=== PATIENT | female | born 2000 | race Caucasian/White ===

== ENCOUNTER 2025-03-07 14:22 | Outpatient (REF) | payer MEDICAID, SELFPAY ==
--- OUTSIDE RECORDS SUMMARY | 2025-03-07 17:19 | XMS_ITS | Encounter Summary ---
Author Organization [facility] Address [address] [place] [address] [address] [address] Care Team Providers Care Drapery Head Former Name Role Phone Jorge Marin MD Primary Care Prov ider Encounter Details Date Type Department Care Team (Late st Contact Info) Description 01/21/2025 Orders Only [facility] Information Management [address] [place], [place] [phone] Provider, Santa, Social History Tobacco Use Types Packs/Day Years Used Date Smoking Tobacco: Never Assessed Depression Answer Date Recorded Patient Health Questionnaire-9 Score 12 04/19/2024 Patient Health Questionnaire-9 Score 12 04/19/2024 Last PHQ-9: Questionnaire Data Not on file 0 04/19/2024 Depression Answer Date Recorded Patient Health Questionnaire-2 Score 4 04/19/2024 Comments Unknown Sex and Gender Information Value Date Recorded Sex Assigned at Female 09/09/2022 10:15 AM EDT Legal Sex Female 10:15 AM EDT Gender Identity Female 09/09/2022 10:15 AM EDT Sexual Orientation Don't know 09/09/2022 10 :15 AM EDT documented as of this encounter Plan of Treatment Not on file documented as of this encounter Procedures Procedure Name Priority Date/Time Associated Diagnosis Comments US PELVIS TRANSVAGINAL Routine 01/20/2025 1:42 PM EDT documented in this encounter Results * US Pelvis Transvaginal (01/20/2025 1:42 PM EDT) Anatomical Region Laterality Modality Pelvis Ultrasound us Historical Provider MD AZUL US PROCEDURES Final R esult documented in this encounter Visit Diagnoses Not on filedocumented in this encounter Additional Health Concerns Assessment Noted Time PHQ-9 Depression Total Score: 12 024 2:53 PM EDT documented as of this encounter Care Teams Drapery Head Former Relationship Specialty Start Date End Date Jorge Marin MD [address] [place] [id number] PCP - General Internal Medicine 04/09/20 documented as of this encounter
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
--- OUTSIDE RECORDS SUMMARY | 2025-03-07 17:19 | XMS_ITS ---
Author Organization [facility] Address [address] [place] [address] [address] [place] [place] [address] Care Team Providers Care Purchasing Officer Name Role Phone Jorge Marin MD Primary Care Prov ider [facility] Complex Status:Outreach In Progress (Enrolling) Start date:02/18/2025 Enrollment reason:Referred by provider Overview SDOh- Patient looking for assistance with Utilities. Referral will be placed. Case Team Name Relationship Phone Marquita Chao (Responsible Staff) Continued Care and Services Coordination
--- OUTSIDE RECORDS SUMMARY | 2025-03-07 17:19 | XMS_ITS | Clinical Summary ---
Author Organization [address] [facility] Address [address] [place] [address] Phone Care Team Providers Care Chicken Handler Name Role Phone Velma Purcell MD Primary Care Provider [phone] Allergies No known active allergies Medications clotrimazole-be tamethasone (LOTRISONE) 1-0.05 % cream Apply topically to affected area twice daily for no more than 10 days 3 Active copper (PARAGARD) 380 square mm IUD by Intrauterine route continuous. 2 Active MULTIVITAMIN ORAL Take by mouth. Activ e hydrOXYzine HCL (ATARAX) 25 mg tablet Take 1 tablet (25 mg total) by mouth 1 (one) time each day. 4 Active ibuprofen (ADVIL,MOTRIN) 800 mg tablet 4 Active ergocalciferol (VITAMIN D-2) 1,250 mcg (50,000 unit) capsuleIndicati ons:Vitamin D deficiency Take 1 capsule (50,000 Units total) by mouth 1 (one) time per week for 8 doses. 8 each 5 03/20/20 25 Active Active Problems Problem Noted Date Diagnosed Date Family history of ovarian cancer 01/05/2025 Overview (01/05/2025): 10/2023 Kimberly EMPOWER hereditary breast/ovarian cancer screen NEGATIVE. Class 3 severe obesity with body mass index (BMI) of 45.0 to 49.9 in adult 08/31/2024 ELIO (generalized anxiety disorder) 04/19/2024 Moderate depressive disorder 04/19/2024 Encounters Date Type Department Care Team Description 02/23/2025 2:30 PM EDT Telemedicine Bariatric Surgery [address] [phone] Class 3 severe obesity with body mass index (BMI) of 45.0 to 49.9 in adult, unspecified obesity type, unspecified whether serious comorbidity present (Primary Dx) 01/27/2025 11:30 AM EDT Office Visit Obstetrics & Gynecology [address] [phone] Michell Arredondo CNM Exposure to sexually transmitted disease (STD) (Primary Dx); Screen for STD (sexually transmitted disease) 01/20/2025 2:00 PM EDT - 01/20/2025 11:59 PM EDT Hospital Encounter [facility]ound [facility] [address] [place] [phone] Encounter for well woman exam with routine gynecological exam; IUD (intrauterine device) in place Discharge Disposition: Home or Self Care 01/19/2025 2:30 PM EDT Telemedicine Bariatric Surgery [address] [phone] Class 3 severe obesity with body mass index (BMI) of 45.0 to 49.9 in adult, unspecified obesity type, unspecified whether serious comorbidity present (CMS/HCC V24, CMS/HCC V28) (Primary Dx) 01/05/2025 2:30 PM EST Office Visit Obstetrics & Gynecology [address] [phone] Michell Arredondo CNM Encounter for well woman exam with routine gynecological exam (Primary Dx); Screening breast examination; IUD (intrauterine device) in place; Family history of ovarian cancer 12/20/2024 [place] [facility] [address] [phone] Alma Delia Munoz MD prior auth 12/14/2024 8:00 AM EST Office Visit Bariatric Surgery - [address] [place] [phone] Alma Delia Munoz MD Class 3 severe obesity due to excess calories with body mass index (BMI) of 45.0 to 49.9 in adult, unspecified whether serious comorbidity present (CMS/HCC V24, CMS/HCC V28) (Primary Dx) from Last 3 Months Immunizations Name Administration Dates Next Due DTaP (Infanrix) 6wks to less than 7yo ,08/07/1999,1998,09/05,1998 HPV, Quadrivalent 09/10/2012,09/10/2011,05/25/20 10 Hepatitis A Pediatric (Havri x; Vaqta) 12mo to less than 19yo 09/28/2013,05/25/2010 Hepatitis B Pediatric (Enger ix B; Recombivax HB) to less than 20 yo 1998,1998,1998 Hib (HbOC) 08/07/1999, 8,1998,07/04 IPV Inactivated polio (Ipol) 6wks and older 07/07/2002,1998,1998 Influenza Quadravalent, MDCK , 0.5ml, preservative free (Flucelvax) 6mo and older 08/15/2021 Influenza Quadrivalent, 0.5m l, preservative free (Fluarix; FluLaval; Fluzone) ages 6mo and older (Afluria) 3yo and older 09/06/2015 Influenza Quadrivalent, with preservative (Fluzone; Afluria) 6mo and older 08/15/2021,09/22/2019,07/29/2017 Influenza, live, intranasal, quadrivalent (FluMist) 2yo to less than 50yo 10/19/2014 Influenza, live, intranasal, trivalent (FluMist) 2yo to less than 50yo 09/28/2013 MMR, measles mumps and rubel la Live (Priorix; M-M-R II) 12mo and older 07/07/2002,05/08/1999 Meningococcal MCV4P 09/22/2019,10/14/2013 OPV 1998 Tdap Tetanus diptheria acell ular pertussis (Boostrix; Adacel) 7yo and older 08/15/2021,09/10/2011 Varicella live (Varivax) 12m o and older 06/10/2008,05/08/1999 Surgical History Surgery Date Site/Laterality Comments OTHER SURGICAL HISTORY PROCEDURE: DENIES PREVIOUS SURGERY Medical History Medical History Date Comments Obesity DX:Obesity Anxiety disorder DX:Anxiety diso rder; COMMENT: panic attack hx Gestational diabetes mellitu s (GDM) during controlled on oral hypoglycemic therapy 09/04/2021 DX:Gestational diabetes arsalan itus (GDM) during controlled on oral hypoglycemic therapy; COMMENT: Diabetes education appt 09-11-21 at 0900 . Report received and sent to mami sánchez rn 09/05/2021 I have discussed with pt when to check pocs 10/08 - pt re-educated and started on Metformin 500mg QHS Weekly testing at 36 weeks Twice weekly NST at 32 weeks Q 4 week growth ultrasound Delive* Family History Medical History Relation Name Comments Ovarian cancer Aunt mom side No Known Problems Father Hypertension Maternal Grandmother Ovarian cancer Maternal Grandmother No Known Problems Mother Hypertension Sister 1 No Known Problems Sister 2 Breast cancer Neg Hx Colon cancer Neg Hx Relation Name Status Comments Aunt mom side Alive Father Alive Maternal Grandmother Alive Mother Alive Sister 1 Alive Sister 2 Alive Social History Tobacco Use Types Packs/Day Years Used Date Smoking Tobacco: Never Smokeless Tobacco: Never Alcohol Use Standard Drinks/Week Comments Yes 0 (1 standard drink = 0.6 oz pur e alcohol) Comments Unknown Sex and Gender Information Value Date Recorded Sex Assigned at Female 12/17/2024 5:55 AM EST Legal Sex Female 4:37 AM EST Gender Identity Female 12/17/2024 5:55 AM EST Sexual Orientation Straight 12/17/2024 5: 55 AM EST 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 Comments:Apg Last Filed Vital Signs Vital Sign Reading Time Taken Comments Blood Pressure 115/76 01/27/2025 11:34 AM EDT Pulse 77 01/27/2025 11:34 AM EDT Temperature 36.6 ??C (97.8 ??F) 12/14/2024 8:41 AM ES T Respiratory Rate - - Oxygen Saturation - - Inhaled Oxygen Concentration - - Weight 106 kg (233 lb) 02/23/2025 2:00 PM EDT Height 149.9 cm (4' 11 ) 01/27/2025 11:34 AM EDT Body Mass Index 47.06 01/27/2025 11:34 AM EDT Plan of Treatment Upcoming Encounters Date Type Department Care Team (Late st Contact Info) Description 03/08/2025 11:30 AM EDT Office Visit Obstetrics & Gynecology - [facility] [address] [place] [phone] Michell Arredondo, CNM [address] [place] [address] 03/29/2025 3:00 PM EDT Telemedicine Bariatric Surgery [facility] [address] [phone] Alethea Fortune, KIRAN [address] [phone] 04/19/2025 11:15 AM EDT Office Visit Bariatric Surgery [facility] [address] [phone] Alma Delia Munoz MD [address] [phone] Health Maintenance Due Date Last Done Comments Social Influencers of Health Screening 10/13/2022 COVID-19 Vaccine ( season) 2024 Depression Screening 04/19/2025 04/19/2024 Influenza Vaccine (Season Ended) 2025 08/15/2021, 08/15/2021, 09/22/2019, Additional history exists Cervical Cancer Screening: Pap Smear 10/23/2026 10/23/2023, 10/23/2023, 12/09/2019 Cholesterol Screening (Lipid Panel) 12/14/2029 12/14/2024 DTaP,Tdap,and Td Vaccines (8 - Td or Tdap) 08/15/2031 08/15/2021, 09/10/2011, 07/07/2002, Additional history exists Hepatitis B Vaccines Completed 1998, 1998, 1998 HIB Vaccines Completed 08/07/1999, 10/11, 1998, Additional history exists IPV Vaccines Completed 07/07/2002, 08/11, 1998, Additional history exists MMR Vaccines Completed 07/07/2002, 05/08/1999 Varicella Vaccines Completed 06/10/2008, 05/08/1999 HPV Vaccines Completed 09/10/2012, 11/2010, 05/25/2010 Hepatitis A Vaccines Completed 09/28/2013, 05/25/20 10 Meningococcal ACWY Vaccine Aged Out 09/22/2019, No longer eligible based on patient's age to complete this topic Gonorrhea/Chlamydia Screening Discontinued 01/27/2025, 04/13/2024 HIV Screening Completed 01/27/2025, 04/11, 12/26/2020 Hepatitis C Screening Completed 01/27/2025, 021 Meningococcal B Vaccine Aged Out No l onger eligible based on patient's age to complete this topic Pneumococcal Vaccine: Pediatrics (0 to 5 Years) and At-Risk Patients (6 to 64 Years) Aged Out No longer eligible based on patient's age to complete this topic RSV Immunization Patients Under 20 months Aged Out No longer eligible based on patient's age to complete this topic Procedures Procedure Name Priority Date/Time Associated Diagnosis Comments CBC WITH AUTO DIFFERENTIAL Routine 01/28/2025 11:09 AM EDT Class 3 severe obesity with body mass index (BMI) of 45.0 to 49.9 in adult, unspecified obesity type, unspecified whether serious comorbidity present (CMS/HCC V24, CMS/HCC V28) CBC AND DIFFERENTIAL Routine 01/28/2025 11:09 AM EDT Class 3 severe obesity with body mass index (BMI) of 45.0 to 49.9 in adult, unspecified obesity type, unspecified whether serious comorbidity present (CMS/HCC V24, CMS/HCC V28) COMPREHENSIVE METABOLIC PANEL Routine 01/28/2025 11:09 AM EDT Class 3 severe obesity with body mass index (BMI) of 45.0 to 49.9 in adult, unspecified obesity type, unspecified whether serious comorbidity present (CMS/HCC V24, CMS/HCC V28) CORTISOL Routine 01/28/2025 11:09 AM EDT Class 3 severe obesity with body mass index (BMI) of 45.0 to 49.9 in adult, unspecified obesity type, unspecified whether serious comorbidity present (CMS/HCC V24, CMS/HCC V28) FOLATE Routine 01/28/2025 11:09 AM EDT Class 3 severe obesity with body mass index (BMI) of 45.0 to 49.9 in adult, unspecified obesity type, unspecified whether serious comorbidity present (CMS/HCC V24, CMS/HCC V28) FERRITIN Routine 01/28/2025 11:09 AM EDT Class 3 severe obesity with body mass index (BMI) of 45.0 to 49.9 in adult, unspecified obesity type, unspecified whether serious comorbidity present (CMS/HCC V24, CMS/HCC V28) IRON AND TIBC Routine 01/28/2025 11:09 AM EDT Class 3 severe obesity with body mass index (BMI) of 45.0 to 49.9 in adult, unspecified obesity type, unspecified whether serious comorbidity present (CMS/HCC V24, CMS/HCC V28) MAGNESIUM Routine 01/28/2025 11:09 AM EDT Class 3 severe obesity with body mass index (BMI) of 45.0 to 49.9 in adult, unspecified obesity type, unspecified whether serious comorbidity present (CMS/HCC V24, CMS/HCC V28) NICOTINE AND COTININE Routine 01/28/2025 11:09 AM EDT Class 3 severe obesity with body mass index (BMI) of 45.0 to 49.9 in adult, unspecified obesity type, unspecified whether serious comorbidity present (CMS/HCC V24, CMS/HCC V28) PARATHYROID HORMONE INTACT Routine 01/28/2025 11:09 AM EDT Class 3 severe obesity with body mass index (BMI) of 45.0 to 49.9 in adult, unspecified obesity type, unspecified whether serious comorbidity present (CMS/HCC V24, CMS/HCC V28) THYROID STIMULATING HORMONE Routine 01/28/2025 11:09 AM EDT Class 3 severe obesity with body mass index (BMI) of 45.0 to 49.9 in adult, unspecified obesity type, unspecified whether serious comorbidity present (CMS/HCC V24, CMS/HCC V28) VITAMIN B1 Routine 01/28/2025 11:09 AM EDT Class 3 severe obesity with body mass index (BMI) of 45.0 to 49.9 in adult, unspecified obesity type, unspecified whether serious comorbidity present (CMS/HCC V24, CMS/HCC V28) VITAMIN B12 Routine 01/28/2025 11:09 AM EDT Class 3 severe obesity with body mass index (BMI) of 45.0 to 49.9 in adult, unspecified obesity type, unspecified whether serious comorbidity present (CMS/HCC V24, CMS/HCC V28) VITAMIN D 25 HYDROXY Routine 01/28/2025 11:09 AM EDT Class 3 severe obesity with body mass index (BMI) of 45.0 to 49.9 in adult, unspecified obesity type, unspecified whether serious comorbidity present (CMS/HCC V24, CMS/[facility] V28) TREPONEMA PALLIDUM ANTIBODY WITH REFLEX TO RPR AND PARTICLE AGGLUTINATION Routine 01/27/2025 12:02 PM EDT Exposure to sexually transmitted disease (STD) Screen for STD (sexually transmitted disease) HIV 1, 2 ANTIBODY, P24 ANTIGEN WITH REFLEX TO DIFFERENTIATION Routine 01/27/2025 12:02 PM EDT Exposure to sexually transmitted disease (STD) Screen for STD (sexually transmitted disease) HEPATITIS C ANTIBODY Routine 01/27/2025 12:02 PM EDT Exposure to sexually transmitted disease (STD) Screen for STD (sexually transmitted disease) WET PREP, GENITAL Routine 01/27/2025 11: 43 AM EDT Exposure to sexually transmitted disease (STD) Screen for STD (sexually transmitted disease) CHLAMYDIA TRACHOMATIS AND NEISSERIA GONORRHOEAE PCR Routine 01/27/2025 11:43 AM EDT Exposure to sexually transmitted disease (STD) Screen for STD (sexually transmitted disease) US PELVIS TRANSVAGINAL NON OB Routine 01/20/2025 2:27 PM EDT Encounter for well woman exam with routine gynecological exam IUD (intrauterine device) in place HEPATIC FUNCTION PANEL Routine 9:16 AM EST Class 3 severe obesity due to excess calories with body mass index (BMI) of 45.0 to 49.9 in adult, unspecified whether serious comorbidity present (CMS/HCC V24, CMS/HCC V28) LIPID PANEL WITH REFLEX TO DIRECT LDL Routine 12/14/2024 9:16 AM EST Class 3 severe obesity due to excess calories with body mass index (BMI) of 45.0 to 49.9 in adult, unspecified whether serious comorbidity present (CMS/HCC V24, CMS/HCC V28) HEMOGLOBIN A1C Routine 12/14/2024 9:16 AM EST Class 3 severe obesity due to excess calories with body mass index (BMI) of 45.0 to 49.9 in adult, unspecified whether serious comorbidity present (CMS/HCC V24, [facility]/HCC V28) HPV Routine 10/23/2023 from Last 3 Months or Most Recently Relevant to Health Maintenance Results * (ABNORMAL) Nicotine and cotinine (01/28/2025 11:09 AM EDT) [facility] Nicotine 4.3(H) <2.0 ng/mL 02/01/2025 5:22 AM EDT [facility] Cotinine 114.6(H) <2.0 ng/mL 02/01/2025 5:22 AM EDT [facility] Comment: ?Additional Reference Ranges: ? Active Tobacco ? Passive ? Abstinence ?User ?Exposure ?? 2 Weeks and more ? Nicotine ?30 - 50 ??ng/mL ?<2 ng/mL ?<2 ng/mL Cotinine ?? 200 - 800 ng/mL ?<8 ng/mL ?<2 ng/mL Reference Ranges from: ??Clin. Chem.; ??[id number] (2002) Direct any interpretive questions to the toxicology laboratory. This is for medical use only, it is not intended for forensic use. If applicable, any drug confirmation testing reported here was developed and the performance characteristics determined by [facility]. This confirmation testing has not been cleared or approved by the FDA. The laboratory is regulated under CLIA as qualified to perform high-complexity testing. This test is used for patient testing purposes. It should not be regarded as investigational or for research. Test performed at [facility], [address], [place], [place] ??[address] ? [phone] Lynda Davis MD, PhD - Geriatric Social Work Professor Blood Venous blood specimen / Unknown Venipuncture / Unknown 01/28/2025 11:09 AM EDT 01/28/2025 12:37 PM EDT us Alma Delia Munoz MD LAB BLOOD ORDERABLES Final R esult [facility] [address] [place] [address] * (ABNORMAL) CBC auto differential (01/28/2025 11:09 AM EDT) WBC 7.7 4.8 - 10.8 K/mcL LAB HEMETOLOGY METHOD 01/28/2025 12:48 PM EDT [facility] RBC 4.20 3.80 - 4.80 M/mcL LAB HEMETOLOGY METHOD 01/28/2025 12:48 PM EDT [facility] Hemoglobin 12.4 11.5 - 16.0 g/dL LAB HEMETOLOGY METHOD 01/28/2025 12:48 PM EDT [facility] Hematocrit 38.4 35.0 - 47.0 % LAB HEMETOLOGY METHOD 01/28/2025 12:48 PM EDT [facility] MCV 92.1 79.0 - 98.0 FL LAB HEMETOLOGY METHOD 01/28/2025 12:48 PM EDT [facility] MCH 29.7 27.0 - 32.0 pcg LAB HEMETOLOGY METHOD 01/28/2025 12:48 PM EDT [facility] MCHC 32.3 32.0 - 37.0 g/dL LAB HEMETOLOGY METHOD 01/28/2025 12:48 PM EDT [facility] RDW 14.3 11.0 - 15.0 % LAB HEMETOLOGY METHOD 01/28/2025 12:48 PM EDT [facility] Platelets 299 130 - 400 K/mcL LAB HEMETOLOGY METHOD 01/28/2025 12:48 PM EDT [facility] MPV 12.6(H) 7.0 - 11.0 FL LAB HEMETOLOGY METHOD 01/28/2025 12:48 PM EDT [facility] NRBC 0.0 <1.0 % LAB HEMETOLOGY METHOD 01/28/2025 12:48 PM EDT [facility] NRBC Absolute 0.00 <0.10 K/mcL LAB HEMETOLOGY METHOD 01/28/2025 12:48 PM EDT [facility] Neutrophils Relative 69.6 % LAB HEMETOLOGY METHOD 01/28/2025 12:48 PM EDT [facility] Lymphocytes Relative 20.9 % LAB HEMETOLOGY METHOD 01/28/2025 12:48 PM EDT [facility] Monocytes Relative 6.0 % LAB HEMETOLOGY METHOD 01/28[facility]25 [facility] Eosinophils Relative 2.6 % LAB HEMETOLOGY METHOD 01/28/2025 12:48 PM EDT [facility] Basophils Relative 0.6 % LAB HEMETOLOGY METHOD 01/28/2025 12:48 PM EDT [facility] Immature Granulocytes Relative 0.3 % LAB HEMETOLOGY METHOD 01/28/2025 12:48 PM EDT [facility] Neutrophils Absolute 5.36 1.50 - 7.00 K/mcL LAB HEMETOLOGY METHOD 01/28/2025 12:48 PM EDT [facility] Lymphocytes Absolute 1.61 1.00 - 5.00 K/mcL LAB HEMETOLOGY METHOD 01/28/2025 12:48 PM EDT [facility] Monocytes Absolute 0.46 0.20 - 1.00 K/[facility] HEMETOLOGY METHOD 01/28/2025 12:48 PM EDT [facility] Eosinophils Absolute 0.20 0.00 - 0.50 K/mcL LAB HEMETOLOGY METHOD 01/28/2025 12:48 PM EDT [facility] Basophils Absolute 0.05 0.00 - 0.20 K/[facility] HEMETOLOGY METHOD 01/28/2025 12:48 PM EDT [facility] Immature Granulocytes Absolute 0.02 0.00 - 0.03 K/[facility] HEMETOLOGY METHOD 01/28/2025 12:48 PM EDT [facility] Blood Venous blood specimen / Unknown Venipuncture / Unknown 01/28/2025 11:09 AM EDT 01/28/2025 12:37 PM EDT us Alma Delia Munoz MD LAB BLOOD ORDERABLES Final R esult [facility] [address] [place] [address], * Iron and TIBC (01/28/2025 11:09 AM EDT) Iron 116 40 - 150 mcg/dL LAB CHEMISTRY METHOD 01/28/2025 3:27 PM EDT [facility] TIBC 360 250 - 450 mcg/dL LAB CHEMISTRY METHOD 01/28/2025 3:27 PM EDT [facility] Iron Saturation 32 15 - 50 % LAB CHEMISTRY METHOD 01/28/2025 3:27 PM EDT [facility] Blood Venous blood specimen / Unknown Venipuncture / Unknown 01/28/2025 11:09 AM EDT 01/28/2025 12:36 PM EDT us Alma Delia Munoz MD LAB BLOOD ORDERABLES Final R esult [facility] [address] [place] [address], [place] [phone] * (ABNORMAL) Vitamin D 25 hydroxy (01/28/2025 11:09 AM EDT) [facility] Vit D, 25-Hydroxy 10.7(L) 30.0 - 80.0 ng/mL LAB CHEMISTRY METHOD 01/28/2025 4:12 PM EDT [facility] Blood Venous blood specimen / Unknown Venipuncture / Unknown 01/28/2025 11:09 AM EDT 01/28/2025 12:36 PM EDT us Alma Delia Munoz MD LAB BLOOD ORDERABLES Final R esult Performing Organization Address City/[facility]/ZIP Co de Phone Number [facility] [address] [place] [address], [place] [phone] * Thyroid stimulating hormone (01/28/2025 11:09 AM EDT) [facility] TSH 1.02 0.40 - 4.00 mcIU/mL LAB CHEMISTRY METHOD 01/28/2025 4:12 PM EDT [facility] Blood Venous blood specimen / Unknown Venipuncture / Unknown 01/28/2025 11:09 AM EDT 01/28/2025 12:36 PM EDT us Alma Delia Munoz MD LAB BLOOD ORDERABLES Final R esult [facility] [address] [place] [address], [place] [phone] * Vitamin B1 (01/28/2025 11:09 AM EDT) [facility] Vitamin B1 Whole Blood 83 38 - 122 ug/L 02/02/2025 8:[address] [facility] Comment: This test was developed and the performance characteristics determined by [facility]. It has not been cleared or approved by the FDA. The laboratory is regulated under CLIA as qualified to perform high-complexity testing. This test is used for patient testing purposes. It should not be regarded as investigational or for research. Test performed at [facility], [address] , [place], [place] ??[address] ? [phone] Lynda Davis MD, PhD - Geriatric Social Work Professor Blood Venous blood specimen / Unknown Venipuncture / Unknown 01/28/2025 11:09 AM EDT 01/28/2025 12:37 PM EDT Alma Delia Munoz MD LAB BLOOD ORDERABLES Final R esult [facility] [address] [place] [address] * Parathyroid hormone intact (01/28/2025 11:09 AM EDT) PTH 57.3 18.5 - 88.0 pcg/mL LAB CHEMISTRY METHOD 01/28/2025 4:12 PM EDT [facility] Blood Venous blood specimen / Unknown Venipuncture / Unknown 01/28/2025 11:09 AM EDT 01/28/2025 12:36 PM EDT Alma Delia Munoz MD LAB BLOOD ORDERABLES Final R esult [facility] [address] [place] [address], * Magnesium (01/28/2025 11:09 AM EDT) Magnesium 2.0 1.9 - 2.6 mg/dL LAB CHEMISTRY METHOD 01/28/2025 3:01 PM EDT [facility] Blood Venous blood specimen / Unknown Venipuncture / Unknown 01/28/2025 11:09 AM EDT 01/28/2025 12:36 PM EDT us Alma Delia Munoz MD LAB BLOOD ORDERABLES Final R esult Performing Organization Address City/[facility]/ZIP Co de Phone Number [facility] [address] [place] [address], [place] [phone] * Folate (01/28/2025 11:09 AM EDT) Folate 14.3 2.8 - 17.0 ng/ml LAB CHEMISTRY METHOD 01/28/2025 3:27 PM EDT [facility] Blood Venous blood specimen / Unknown Venipuncture / Unknown 01/28/2025 11:09 AM EDT 01/28/2025 12:36 PM EDT us Alma Delia Munoz MD LAB BLOOD ORDERABLES Final R esult Performing Organization Address [facility]/ZIP Co de Phone Number [facility] [address] [place] [address], [place] [phone] * Ferritin (01/28/2025 11:09 AM EDT) Pathologist [facility] Ferritin 74 8 - 252 ng/mL LAB CHEMISTRY METHOD 01/28/2025 3:27 PM EDT [facility] Blood Venous blood specimen / Unknown Venipuncture / Unknown 01/28/2025 11:09 AM EDT 01/28/2025 12:36 PM EDT us Alma Delia Munoz MD LAB BLOOD ORDERABLES Final R esult [facility] [address] [place] [address], [place] [phone] * Vitamin B12 (01/28/2025 11:09 AM EDT) Pathologist [facility] Vitamin B-12 341 250 - 900 pcg/mL LAB CHEMISTRY METHOD 01/28/2025 3:27 PM EDT [facility] Blood Venous blood specimen / Unknown Venipuncture / Unknown 01/28/2025 11:09 AM EDT 01/28/2025 12:36 PM EDT Alma Delia Munoz MD LAB BLOOD ORDERABLES Final R esult Performing Organization Address City/[facility]/ZIP Co de Phone Number [facility] [facility] [address] [place] [address], * Cortisol (01/28/2025 11:09 AM EDT) [facility] Cortisol 13.8 mcg/dL LAB CHEMISTRY METHOD 01/28/2025 9:54 PM EDT [facility] Blood Venous blood specimen / Unknown Venipuncture / Unknown 01/28/2025 11:09 AM EDT 01/28/2025 12:36 PM EDT Narrative [facility] - 01/28/2025 9:54 PM EDT CORTISOL REFERENCE RANGE ?? 8 AM SPEC: ??5.0-23.0 mcg/dL ?? 4 PM SPEC: ??3.0-16.0 mcg/dL ?? 8 PM SPEC: ??<5.0 mcg/dL us Alma Delia Munoz MD LAB BLOOD ORDERABLES Final R esult [facility] [address] [place] [address], * (ABNORMAL) Comprehensive metabolic panel (01/28/2025 11:09 AM EDT) [facility] Sodium 140 133 - 145 mmol/L LAB CHEMISTRY METHOD 01/28/2025 3:27 PM EDT [facility] Potassium 4.1 3.5 - 5.5 mmol/L LAB CHEMISTRY METHOD 01/28/2025 3:27 PM [facility] Chloride 108 96 - 110 mmol/L LAB CHEMISTRY METHOD 01/28/2025 3:27 PM [facility] CO2 26 21 - 32 mmol/L LAB CHEMISTRY METHOD 01/28/2025 3:27 PM [facility] Anion Gap 6 3 - 11 LAB CHEMISTRY METHOD 01/28/2025 3:27 PM [facility] Glucose 97 70 - 100 mg/dL LAB CHEMISTRY METHOD 01/28/2025 3:27 PM [facility] BUN 10 5 - 25 mg/dL LAB CHEMISTRY METHOD 01/28/2025 3:27 PM [facility] Creatinine 0.46(L) 0.50 - 1.10 mg/dL LAB CHEMISTRY METHOD 01/28/2025 3:27 PM [facility] eGFR 136 >=60 mL/min/1. 73m2 LAB CHEMISTRY METHOD 01/28/2025 3:27 PM [facility] Comment:Calculation based on the??Chronic Kidney Disease Epidemiology Collaboration (CKD-EPI) equation refit??without adjustment for race. BUN/Creatinine Ratio 21.7 LAB CHEMISTRY METHOD 01/28/2025 3:27 PM [facility] Calcium 9.0 8.5 - 10.5 mg/dL LAB CHEMISTRY METHOD 01/28/2025 3:27 PM [facility] AST (SGOT) 22 10 - 42 unit/L LAB CHEMISTRY METHOD 01/28/2025 3:27 PM [facility] ALT (SGPT) 46 10 - 60 unit/L LAB CHEMISTRY METHOD 01/28/2025 3:27 PM [facility] Alkaline Phosphatase 80 42 - 121 unit/L LAB CHEMISTRY METHOD 01/28/2025 3:27 PM [facility] Total Protein 7.2 6.0 - 8.0 g/dL LAB CHEMISTRY METHOD 01/28/2025 3:27 PM EDT [facility] Albumin 3.6 3.2 - 5.0 g/dL LAB CHEMISTRY METHOD 01/28/2025 3:27 PM EDT [facility] Total Bilirubin 1.0 0.0 - 1.4 mg/dL LAB CHEMISTRY METHOD 01/28/2025 3:27 PM EDT [facility] Blood Venous blood specimen / Unknown Venipuncture / Unknown 01/28/2025 11:09 AM EDT 01/28/2025 12:36 PM EDT Alma Delia Munoz MD LAB BLOOD ORDERABLES Final R esult Performing Organization Address [facility]/ZIP Co de Phone Number [facility] [address] [place] [address], [place] [phone] * Hepatitis C antibody (01/27/2025 12:02 PM EDT) Pathologist [facility] Hepatitis C Antibody Negative Negative LAB CHEMISTRY METHOD 01/27/2025 2:26 PM EDT [facility] Blood Venous blood specimen / Unknown Venipuncture / Unknown 01/27/2025 12:02 PM EDT 01/27/2025 12:40 PM EDT Michell Arredondo CNM LAB BLOOD ORDERABLES Final Re sult [facility] [address] [place] [address], [place] [phone] * HIV 1,2 antibody, p24 antigen with reflex to differentiation (01/27/2025 12:02 PM EDT) HIV Combo AB/AG Negative Negative LAB CHEMISTRY METHOD 01/27/2025 2:26 PM EDT [facility] Blood Venous blood specimen / Unknown Venipuncture / Unknown 01/27/2025 12:02 PM EDT 01/27/2025 12:40 PM EDT Narrative [facility] - 01/27/2025 2:26 PM EDT This assay is a 4th generation assay allowing for earlier detection of HIV infection by detecting the presence of the HIV-1 p24 antigen as well as the traditional antibodies to HIV type 1 (including group O) and type 2. ??Use of a 4th generation assay is the current CDC recommendation for HIV screening. [facility] LAB BLOOD ORDERABLES Final Re sult Performing Organization Address City/[facility]/ZIP Co de Phone Number [facility] [address] [place] [address], [place] [phone] * Treponema pallidum antibody with reflex to RPR and particle agglutination (01/27/2025 12:02 PM EDT) T. Pallidum Antibodies Negative Negative LAB CHEMISTRY METHOD 01/27/2025 1:59 PM EDT [facility] Blood Venous blood specimen / Unknown Venipuncture / Unknown 01/27/2025 12:02 PM EDT 01/27/2025 12:[address] [facility] LAB BLOOD ORDERABLES Final Re sult Performing Organization Address City/[facility]/ZIP Co de Phone Number [facility] [address] [place] [address], [place] [phone] * Chlamydia trachomatis and Neisseria gonorrhoeae molecular study (01/27/2025 11:43 AM EDT) Neisseria gonorrhoeae PCR Negative Negative LAB MOLECULAR DIAGNOSTICS METHOD 01/27/2025 2:32 PM EDT [facility] Chlamydia trachomatis PCR Negative Negative LAB MOLECULAR DIAGNOSTICS METHOD 01/27/2025 2:32 PM EDT [facility] Swab Cervix uteri structure / Unknown Non-blood Collection / Unknown 01/27/2025 11:43 AM EDT 01/27/2025 11:55 AM EDT Michell Arredondo [facility] MICROBIOLOGY - GENERAL OR DERABLES Final Result Performing Organization Address [facility]/ZIP Co de Phone Number [facility] [address] [place] [address], [place] [phone] * (ABNORMAL) Wet prep, genital (01/27/2025 11:43 AM EDT) Clue Cells, Wet Prep Negative Negative 01/27/2025 1:05 PM EDT [facility] Yeast, Wet Prep Negative Negative 01/27/2025 1:05 PM EDT [facility] Trichomonas, Wet Prep Positive(A) Negative 01/27/2025 1:05 PM EDT [facility] Swab Vaginal structure / Unknown Non-blood Collection / Unknown 01/27/2025 11:43 AM EDT 01/27/2025 11:55 AM EDT Michell Arredondo [facility] MICROBIOLOGY - GENERAL OR DERABLES Final Result Performing Organization Address [facility] Co de Phone Number [facility] [address] [place] [address], * [place] Pelvis Transvaginal Non OB (01/20/2025 2:27 PM EDT) Anatomical Region Laterality Modality Body Ultrasound 01/20/2025 2:30 PM EDT Impressions 01/20/2025 2:32 PM EDT IUD is in satisfactory position. -------- FINAL REPORT -------- Dictated By: Fatoumata Sunshine Dictated Date: 01/20/2025 14:30 ET Assigned Physician: Fatoumata Sunshine Reviewed and Electronically Signed By: Fatoumata Sunshine Signed Date: 01/20/2025 14:32 ET Workstation ID: [id number] Transcribed By: Self Edit Transcribed Date: 01/20/2025 14:30 ET Narrative 01/20/2025 2:32 PM EDT PELVIC ULTRASOUND: History: IUD check. Lost IUD strings. Technique: Transabdominal and transvaginal technique. Findings: IUD is in satisfactory position with the tip 5 mm from the most fundal aspect of the endometrium. Endometrium: Measures 8 mm in thickness. Procedure Note Fatoumata Sunshine MD - 01/20/2025 PELVIC ULTRASOUND: History: IUD check. Lost IUD strings. Technique: Transabdominal and transvaginal technique. Findings: IUD is in satisfactory position with the tip 5 mm from the mostfundal aspect of the endometrium. Endometrium: Measures 8 mm in thickness. IMPRESSION: IUD is in satisfactory position. -------- FINAL REPORT -------- Dictated By: Fatoumata Sunshine Dictated Date: 01/20/2025 14:30 ET Assigned Physician: Fatoumata Sunshine Reviewed and Electronically Signed By: Fatoumata Sunshine Signed Date: 01/20/2025 14:32 ET Workstation ID: [id number] Transcribed By: Self Edit Transcribed Date: 01/20/2025 14:30 ET Michell Arredondo [facility] IM US PROCEDURES Final Resul t * Lipid panel with reflex to direct LDL (12/14/2024 9:16 AM EST) Cholesterol 122 0 - 200 mg/dL LAB CHEMISTRY METHOD 12/14/2024 3:14 PM [facility] Triglycerides 99 0 - 150 mg/dL LAB CHEMISTRY METHOD 12/14/2024 3:14 PM [facility] HDL 47 >=40 mg/dL LAB CHEMISTRY METHOD 12/14/2024 3:14 PM [facility] LDL Calculated 55 0 - 100 mg/dL LAB CHEMISTRY METHOD 12/14/2024 3:14 PM [facility] VLDL Cholesterol Jesus 19.8 mg/dL LAB CHEMISTRY METHOD 12/14/2024 3:14 PM EST [facility] Non HDL Chol. (LDL+VLDL) 75 <145 mg/dL LAB CHEMISTRY METHOD 12/14/2024 3:14 PM EST [facility] Chol/HDL Ratio 2.6 0.0 - 4.4 LAB CHEMISTRY METHOD 12/14/2024 3:14 PM EST [facility] Blood Venous blood specimen / Unknown Venipuncture / Unknown 12/14/2024 9:16 AM EST 12/14/2024 9:16 AM EST us Alma Delia Munoz MD LAB BLOOD ORDERABLES Final R esult Performing Organization Address City/[facility]/ZIP Co de Phone Number [facility] [address] [place] [address], [place] [phone] * Hemoglobin A1c (12/14/2024 9:16 AM EST) [facility] Hemoglobin A1C 5.4 <6.5 % LAB CHEMISTRY METHOD 12/15/2024 10:33 AM EST [facility] Mean Bld Glu Estim. 108 mg/dL LAB CHEMISTRY METHOD 12/15/2024 10:33 AM [facility] Blood Venous blood specimen / Unknown Venipuncture / Unknown 12/14/2024 9:16 AM EST 12/14/2024 9:16 AM EST us Alma Delia Munoz MD LAB BLOOD ORDERABLES Final R esult [facility] [address] [place] [address], [place] [phone] * Hepatic function panel (12/14/2024 9:16 AM EST) Total Protein 6.7 6.0 - 8.0 g/dL LAB CHEMISTRY METHOD 12/14/2024 3:14 PM EST [facility] Albumin 3.6 3.2 - 5.0 g/dL LAB CHEMISTRY METHOD 12/14/2024 3:14 PM EST [facility] Total Bilirubin 0.9 0.0 - 1.4 mg/dL LAB CHEMISTRY METHOD 12/14/2024 3:14 PM [facility] Bilirubin, Direct 0.2 0.0 - 0.3 mg/dL LAB CHEMISTRY METHOD 12/14/2024 3:14 PM [facility] Bilirubin, Indirect 0.7 0.0 - 1.1 mg/dL LAB CHEMISTRY METHOD 12/14/2024 3:14 PM [facility] ALT (SGPT) 36 10 - 60 unit/L LAB CHEMISTRY METHOD 12/14/2024 3:14 PM [facility] AST (SGOT) 13 10 - 42 unit/L LAB CHEMISTRY METHOD 12/14/2024 3:14 PM [facility] Alkaline Phosphatase 73 42 - 121 unit/L LAB CHEMISTRY METHOD 12/14/2024 3:14 PM [facility] Blood Venous blood specimen / Unknown Venipuncture / Unknown 12/14/2024 9:16 AM EST 12/14/2024 9:16 AM EST Alma Delia Munoz MD LAB BLOOD ORDERABLES Final R esult [facility] [address] [place] [address], [place] [phone] * Cervical Cancer Screening: HPV (10/23/2023) Pathologist [facility] Cervical Cancer Screening: HPV abstracted, no interpretation Historical Provider HEALTH MAINTENANCE Final Result from Last 3 Months or Most Recently Relevant to Health Maintenance Insurance MEDICAID - [place] Care Teams Chicken Handler Relationship Specialty Start Date End Date Velma Purcell MD [address] [place] [phone] PCP - General 06/27/21
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
--- OUTSIDE RECORDS SUMMARY | 2025-03-07 17:19 | XMS_ITS | Encounter Summary ---
Author Organization [employer] Address [address] [facility] [address] [place] [address] Care Team Providers Care Gas Technician Name Role Phone Jorge Marin MD Primary Care Prov ider Encounter Details Date Type Department Care Team ([facility] st Contact Info) Description 03/01/2025 11:15 AM EDT Office Visit [facility] [address] [place], [place] [phone] Jorge Marin MD [address] [place] [address] Encounter for physical examination (Primary Dx); ELIO (generalized anxiety disorder) Social History Tobacco Use Types Packs/Day Years Used Date Smoking Tobacco: Never Assessed Depression Answer Date Recorded Patient Health Questionnaire-9 Score 7 03/01/2025 Patient Health Questionnaire-9 Score 7 03/01/2025 Last PHQ-9: Questionnaire Data Not on file 0 03/01/2025 Housing Stability Answer Date Recorded What is your housing situation today? I have alan cheney 02/18/[address] you [...] AM EDT documented as of this encounter Last Filed Vital Signs Vital Sign Reading [...] Mass Index 47.94 03/01/2025 11:28 AM EDT documented in this encounter Progress Notes * Jorge Forte MD - 03/01/2025 11:15 AM EDT Subjective Patient ID: Jayshree Jurado is a 24 y.o. female who presents for No chief complaint on file.. HPI Patient was seen on office for a physical examination Review of Systems Constitutional: Negative for chills, fatigue and fever. Respiratory: Negative for cough and shortness of breath. Cardiovascular: Negative for chest pain and palpitations. Gastrointestinal: Negative for abdominal distention, abdominal pain, blood in stool and constipation. Objective Physical Exam Constitutional: Appearance: Normal appearance. HENT: Right Ear: Tympanic membrane, ear canal and external ear normal. There is no impacted cerumen. Left Ear: Tympanic membrane, ear canal and external ear normal. There is no impacted cerumen. Cardiovascular: Rate and Rhythm: Normal rate and regular rhythm. Heart sounds: No murmur heard. Pulmonary: Effort: Pulmonary effort is normal. No respiratory distress. Breath sounds: No stridor. No wheezing or rhonchi. Abdominal: General: Abdomen is flat. There is no distension. Palpations: There is no mass. Tenderness: There is no abdominal tenderness. Hernia: No hernia is present. Musculoskeletal: General: Normal range of motion. Cervical back: Normal range of motion. No rigidity or tenderness. Lymphadenopathy: Cervical: No cervical adenopathy. Neurological: General: No focal deficit present. Mental Status: She is alert and oriented to person, place, and time. Psychiatric: Mood and Affect: Mood normal. Behavior: Behavior normal. Assessment/Plan Problem List Items Addressed This Visit ELIO (generalized anxiety disorder) Followed by therapist and psych, no suicidal/homicidal ideas, Encounter for physical examination - Primary Unremarkable physical exam, no heart murmurs, no thyroid nodules palpated, patient noted with low vitamin d, started on oral replacement, pending bariatric surgery evaluation documented in this encounter Miscellaneous Notes * Assessment & Plan Note - Jorge Forte MD - 03/01/2025 12:13 PM EDTAssociated Problem(s): ELOI (generalized anxiety disorder) Followed by therapist and psych, no suicidal/homicidal ideas, * Assessment & Plan Note - Jorge Forte MD - 03/01/2025 12:12 PM EDTAssociated Problem(s): Encounter for physical examination Unremarkable physical exam, no heart murmurs, no thyroid nodules palpated, patient noted with low vitamin d, started on oral replacement, pending bariatric surgery evaluation * Addendum Note - Marisa Smith RN - 03/01/2025 11:15 AM EDTAddended by: MARISA SMITH on: 03/07/2025 02:51 PM Modules accepted: Orders documented in this encounter Plan of Treatment Scheduled Orders Name Type Priority Associated Diagnoses Orde r Schedule T-SPOT??.TB Lab Routine Encounter for physical examination Expected: 03/07/2025 (Approximate), Expires: 03/07/2026 Hepatitis A,B,C Profile Lab Routine Encounter for physical examination Expected: 03/07/2025, Expires: 03/07/2026 Hepatitis B Core Antibody, Total Lab Routine Encounter for physical examination Expected: 03/07/2025 (Approximate), Expires: 03/07/2026 Hepatitis B Surface Antibody, Qualitative Lab Routine Encounter for physical examination Expected: 03/07/2025 (Approximate), Expires: 03/07/2026 Hepatitis B surface antigen, EIA Lab Routine Encounter for physical examination Expected: 03/07/2025 (Approximate), Expires: 03/07/2026 Measles, Mumps, and Rubella (MMR) Antibodies??(IgG) Panel, Immune Status Lab Routine Encounter for physical examination Expected: 03/07/2025 (Approximate), Expires: 03/07/2026 Varicella Zoster Antibody, IgG Lab Routine Encounter for physical examination Expected: 03/07/2025 (Approximate), Expires: 03/07/2026 documented as of this encounter Visit Diagnoses Diagnosis Encounter for physical examination- Primary ELIO (generalized anxiety disorder) Generalized anxiety disorder documented in this encounter Additional Health Concerns Assessment Noted Time PHQ-9 Depression Total Score: 7 03/01/20 25 1:42 PM EDT documented as of this encounter Care Teams Gas Technician Relationship Specialty Start Date End Date Jorge Marin MD [address] [place] [phone] PCP - General Internal Medicine 04/09/20 documented as of this encounter
[2025-03-08 05:19] LABS: Varicella IgG Antibody 4.61 S/CO
[2025-03-08 08:52] LABS: HBS Num1 0.32 mIU/mL (0-7.99); HBc Num1 0.11 S/CO (0.00-0.79); HBsAGNum1 0.27 S/CO (0.00-0.99); Hepatitis A Antibody IgM 0.15 Index (0-0.79); Hepatitis B Core Antibody Nonreactive (Nonreactive); Hepatitis B Surface Antigen Negative (Negative); ~HepC Num1 0.08 S/CO (0.00-0.79); ~Hepatitis A Antibody IgM Nonreactive (Nonreactive); ~Hepatitis B Surface Antibody NONREACTIVE (Nonreactive); ~Hepatitis C Antibody Nonreactive (Nonreactive)
[2025-03-08 09:54] LABS: Rubella IgG Antibody 2.09 Index
[2025-03-09 18:08] LABS: TS Negative Control Passed; TS Panel A 0; TS Panel B 0; TS Positive Control Passed; TSpotTB Negative (Negative)
== END 2025-03-07 14:23 | disposition home or self-care (01) ==
LOC: HO.CHCLDS 14:22
PROVIDERS: Visit Provider Internal Medicine
DX: Z00.00 Encounter for general adult medical examination without abnormal findings (principal)
CPT/HCPCS: 36415; 86481; 86704; 86706; 86709; 86735; 86762; 86765; 86787; 86803; 87340